=== PATIENT | male | born 1955 | race Caucasian/White ===

== ENCOUNTER 2022-07-08 07:36 | Emergency (ER) | payer MEDICARE, SELFPAY ==
[2022-07-08 07:49] VITALS: BP 171/97; PULSE 72; RESP 20; TEMP 36.5; O2SAT 96; BMI 27.8
--- NOTE | 2022-07-08 07:55 | ED.EAR ---
HPI - Ear Problem General Chief complaint: Ear Stated complaint: Poss ruptured eardrum/leaking spinal fluid-WIC Time Seen by Provider: 07/08/22 07:45 Source: patient Mode of arrival: Ambulatory History of Present Illness HPI Narrative: 67M non smoker without significant medical history presents with his and the chief complaint of left ear problems for the past few months. He states he is had decreased hearing, if not inability to hear as well as drainage of clear fluid from his left ear for approximately 2 months. A few days ago his symptoms greatly worsened with significant pain and he used a Q-tip and got out a relatively large dark clump of wax or other matter. He is had no fever or chills and denies leakage of blood or what appears to be pus. States that he is had a saline like sensation in his nose Related Data Previous Rx's Medication Instructions Recorded ofloxacin 0.3 % ear drops 5 drp EAR-LEFT BID 7 days #5 mL 07/08/22 Allergies Allergy/AdvReac Type Severity Reaction Status Date / Time Sulfa (Sulfonamide Allergy Mild Hives Verified 07/08/22 07:48 Antibiotics) Review of Systems Review of Systems Narrative: GENERAL: Denies chills, fatigue, malaise, fever, sweats. HEENT: See HPI RESPIRATORY: Denies dyspnea, cough, wheezing, hemoptysis, sputum. CARDIOVASCULAR: Denies chest pain, palpitations, orthopnea, edema, GASTROINTESTINAL: Denies nausea, vomiting, abdominal pain, diarrhea, constipation, melena. : Denies dysuria, frequency, incontinence, hematuria, urinary retention. MUSCULOSKELETAL: denies weakness, joint pain, or bony pain SKIN: Denies rash, skin lesions, or other NEUROLOGIC: Denies weakness, headache, numbness, change in speech, confusion, seizures, incoordination. PSYCHIATRIC: No concerning psychosocial issues. 12 point review of systems is negative except for those stated above Patient History Social History Smoking Status: Never smoker Smoking Status: Never smoker Substance Use Type: does not use Exam Narrative Exam Narrative: GEN: AOx3 and in mild distress EYES: Pupils are equal, round, and reactive to light and accommodation. Extraoccular muscles are intact bilaterally. There is no subconjunctival hemorrhage or exudate. ENT: R TM in tact, normal landmarks. L TM difficult to view, some obstruction by cerumen. NO blood, fluid, or debris in EAC CHEST: Lungs are clear to auscultation bilaterally and free of wheezes, rales, or rhonchi. Heart rate is regular rhythm, there are no murmurs, clicks, rubs, or gallops. There is no chest wall tenderness. ABD: Abdomen is soft and nontender. There is no guarding or rebound. Bowel sounds are normal in all 4 quadrants. There is no mass or organomegaly. EXT: Full painless ROM of all extremities with no loss of sensation or strength. SKIN: Warm, pink, and dry. No erythema or rash Initial Vital Signs Initial Vital Signs: Vital Signs Temperature 97.7 F 07/08/22 07:49 Pulse Rate 72 07/08/22 07:49 Respiratory Rate 20 07/08/22 07:49 Blood Pressure 171/97 H 07/08/22 07:49 Pulse Oximetry 96 07/08/22 07:49 Oxygen Delivery Method 07/08/22 07:49 Course Consultations Consultation #1: Discussed case with on-call ENT (rodolfo) who was happy to see patient in the office this morning and request we discharge him and sent him directly over to the [place] office Vital Signs Vital signs: Vital Signs - 8 hr 07/08/22 07:49 Temperature 97.7 F Pulse Rate 72 Respiratory Rate 20 Blood Pressure 171/97 H Pulse Oximetry 96 Oxygen Delivery Method Room Air Discharge Plan Departure Patient Disposition: Home Clinical Impression: Tympanic membrane perforation Instructions: Ruptured Eardrum Activity Restrictions/Additional Instructions: *You have been diagnosed with [left tympanic membrane perforation] *What to do: *Please continue to take your regular medications as directed. [x ] New medication prescriptions sent to your pharmacy: [[facility] ] [ ] New medication written as a paper prescription [ ] No new medications given Please proceed directly to [facility] ([phone]) office in [place]. Directions have been provided. As we discussed, Dr. Silva stated he can squeeze you in this morning Prescriptions: New ofloxacin 0.3 % drops 5 drp EAR-LEFT BID 7 Days Qty: 5 0RF Referrals: Regan Silva MD [Physician] - Visit Report Forms: Patient Portal/API
== END 2022-07-08 08:35 | disposition home or self-care (01) ==
PROVIDERS: Emergency Provider Emergency Medicine
DX: H72.92 Unspecified perforation of tympanic membrane, left ear (principal)
CPT/HCPCS: 99281

== ENCOUNTER → 2022-10-29 08:20 | Outpatient (CLI) | payer OTHER, SELFPAY ==
--- NOTE | 2022-10-29 | DI.MRI.S_ITS ---
PROCEDURE: MR HEAD/BRAIN WO CON INDICATIONS: HEADACHE TECHNIQUE: Non-contrast axial T1 spin echo, axial T2 fast spin echo, sagittal and axial FLAIR, coronal T2 fast spin echo, axial gradient echo, axial diffusion and ADC through the brain. COMPARISON: None. FINDINGS: Image quality: Excellent. CSF spaces: Ventricles appear symmetric in size and shape. Basal cisterns are patent. No extra-axial fluid collections. Brain: No intracranial bleeds or mass effects. There is cerebral volume loss for age. There are periventricular and deep white matter chronic small vessel ischemic changes. Brainstem appears normal. Diffusion-weighted images show no acute ischemic insults. No chronic ischemic insults. Normal intravascular flow voids are present. Skull and face: Calvarial bone marrow is normal in signal. Orbits are normal. Sinuses: Moderate bilateral maxillary sinus mucosal thickening. Left maxillary sinus retention cyst. Air-fluid level within the right maxillary sinus. Mild bilateral frontal and sphenoid sinus mucosal thickening. Mastoids clear. IMPRESSION: 1. Volume loss and small vessel ischemic disease. 2. No acute process. No recent infarct. 3. Sinus disease. Dictated by: Harpreet Grant M.D. on 10/29/2022 at 10:35 Transcribed by: AISHWARYA on 10/29/2022 at 10:36 Approved by: Harpreet Grant M.D. on 10/29/2022 at 13:33
== END ==
PROVIDERS: PCP Internal Medicine; Referring Provider Internal Medicine; Visit Provider Internal Medicine
DX: J32.0 Chronic maxillary sinusitis (principal); J34.1 Cyst and mucocele of nose and nasal sinus; R51.9 Headache, unspecified
CPT/HCPCS: 70551

== ENCOUNTER 2023-10-20 07:16 | Emergency (ER) | payer OTHER, SELFPAY ==
[2023-10-20] VITALS (8 sets, daily range): BP systolic 166–189; BP diastolic 95–109; PULSE 60–75; RESP 14; TEMP 36.4; O2SAT 98–100; BMI 27.8
--- NOTE | 2023-10-20 07:28 | ED.MALEGU ---
HPI - Male Genitourinary General Chief complaint: Abdominal Pain Stated complaint: pain in groin area Time Seen by Provider: 10/20/23 07:25 Source: patient Mode of arrival: Ambulatory Limitations: no limitations History of Present Illness HPI Narrative: 68-year-old male with history of bilateral inguinal hernia repair 11 months ago who presents with complaint of left groin pain. Patient states that it does feel somewhat similar to when he had kidney stones but states it has been constant for the past several months. He states it is worse at nighttime. He notes that he hikes up [place] which is a significant strenuous hike 4 times weekly and it feels better during this activity but at nighttime when he is lying flat it is worse. He states it starts right in the left inguinal area just behind the scrotum but moves up towards the suprapubic bladder area. Sometimes extends over to the right ASIS hip area. Patient states no swelling no redness, no skin changes. He states he takes oral pain medication and ice packs. He states it has been getting worse in the past week and not as tolerable. He denies fevers or chills. No chest pain or shortness of breath, no nausea no vomiting. No diarrhea or constipation and states stooling regularly with no black or bloody stools. He notes he sometimes has urinary frequency or dark colored urine but no discharge. No dysuria. Patient states he sees his primary care he is never had any imaging of the area. He states if it was a kidney stone would be stuck because the pain is persistent. States no daily prescriptions. No reported medical issues. He had bilateral inguinal hernia repair about 11 months ago. Denies tobacco, alcohol or illicit. His primary care is Peg Markham. Related Data Allergies Allergy/AdvReac Type Severity Reaction Status Date / Time Sulfa (Sulfonamide Allergy Mild Hives Verified 10/20/23 07:28 Antibiotics) Review of Systems Review of Systems ROS Unobtainable: All systems reviewed & are unremarkable except as noted in HPI and below Patient History Social History Smoking Status: Never smoker Smoking Status: Never smoker alcohol intake frequency: other Substance Use Type: does not use Exam Narrative Exam Narrative: GENERAL: Alert and oriented x three, well-appearing male in mild distress. HEENT: Head normocephalic, atraumatic, EOMI, pupils reactive, face symmetric, moist mucous membranes NECK: Supple, full range of motion CARDIOVASCULAR: Regular rate and rhythm without murmurs, rubs or gallops. RESPIRATORY: Breath sounds equal bilaterally, no wheezes rales or rhonchi. ABDOMEN: Soft, nontender. Non-distended. Normoactive bowel sounds all 4 quadrants. No guarding or rebound, rigidity, no mass : No CVA tenderness. Male: normal external examination, no penile discharge or lesions, testicles non-tender, cremasteric reflex intact, no inguinal hernias noted with palpation or on exam. No rash, no erythema or skin changes. EXTREMITIES: Normal range of motion, no clubbing or edema. Neurovascularly intact NEUROLOGICAL: Cranial nerves II through XII grossly intact. Moving all extremities SKIN: Warm, dry, no petechiae, no rashes or lesions. Initial Vital Signs Initial Vital Signs: Vital Signs Temperature 97.6 F 10/20/23 07:20 Pulse Rate 69 10/20/23 07:20 Respiratory Rate 14 10/20/23 07:20 Blood Pressure 189/95 H 10/20/23 07:20 Pulse Oximetry 99 10/20/23 07:20 Oxygen Delivery Method Room Air 10/20/23 07:20 Course Orders Ordered: ED Orders 10/20/23 07:41 CT abdomen pelvis w con Stat 10/20/23 07:45 UA dip and micro [Urinalysis and Microscopic] Stat 10/20/23 08:00 Complete Blood Count AUTO DIFF Stat Comprehensive Metabolic Panel Stat Lipase Stat 10/20/23 08:37 US scrotum Stat Vital Signs Vital signs: Vital Signs - 8 hr 10/20/23 07:20 10/20/23 07:23 10/20/23 07:25 Temperature 97.6 F Pulse Rate 69 75 68 Respiratory Rate 14 Blood Pressure 189/95 H Pulse Oximetry 99 98 99 Oxygen Delivery Method Room Air 10/20/23 07:25 10/20/23 07:30 10/20/23 08:09 Temperature Pulse Rate 69 60 Respiratory Rate Blood Pressure 189/95 H Pulse Oximetry 100 100 Oxygen Delivery Method Room Air 10/20/23 08:30 10/20/23 09:00 10/20/23 09:18 Temperature Pulse Rate 63 74 Respiratory Rate Blood Pressure 166/109 H Pulse Oximetry 99 99 Oxygen Delivery Method [facility] - Male Genitourinary Lab Data 10/20/23 08:00 10/20/23 08:00 Labs: Lab Results 10/20/23 10/20/23 Range/Units 07:45 08:00 WBC 7.4 (4.5-11.0) X10^3/uL RBC 5.15 (4.5-5.9) X10^6/uL Hgb 14.8 (13.5-17.5) g/dL Hct 43.5 (41-53) % MCV 84.6 (80-100) fL MCH 28.8 (26-34) PG MCHC 34.1 (30-36) % RDW 13.4 (11.6-14.8) % Plt Count 248 (150-400) X10^3/uL Neut % (Auto) 54.5 (50-75) % Lymph % (Auto) 29.9 (25-40) % [place] % (Auto) 8.9 (3-14) % Eos % (Auto) 5.8 H (2-4) % Baso % (Auto) 0.9 (0-2) % Neut # (Auto) 4000 (4978-5394) /uL Lymph # (Auto) 2200 (7044-4070) /uL [place] # (Auto) 700 (0-900) /uL Eos # (Auto) 400 (0-450) /uL Baso # (Auto) 100 (0-100) /uL Sodium 136 L (137-145) mmol/L Potassium 3.8 (3.4-5.1) mmol/L Chloride 101 (98-107) mmol/L Carbon Dioxide 26 (22-32) mmol/L BUN 20 (9-20) mg/dL Creatinine 0.95 (0.66-1.25) mg/dL Estimated GFR > 60 (>60) mL/min BUN/Creatinine Ratio 21.1 (6-22) Glucose 110 (80-110) mg/dL Calcium 9.4 (8.4-10.2) mg/dL Total Bilirubin 0.5 (0.2-1.3) mg/dL AST 31 (17-59) IU/L ALT 35 (<50) IU/L Alkaline Phosphatase 108 (38-126) U/L Total Protein 8.0 (6.3-8.2) g/dL Albumin 4.5 (3.5-5.0) g/dL Globulin 3.5 (1.7-4.1) g/dL Albumin/Globulin Ratio 1.3 (1.0-2.8) Lipase 211 (23-300) U/L Urine Color Yellow Urine Appearance Clear Urine pH 6.0 (4.5-8.0) Ur Specific Roberts 1.015 (1.000-1.035) Urine Protein Negative (Negative) Urine Glucose (UA) Negative (Negative) g/dL Urine Ketones Negative (NEGATIVE) Urine Occult Blood Trace-intact (Negative) Urine Nitrate Negative (Negative) Urine Bilirubin Negative (NEGATIVE) Urine Urobilinogen 0.2 (0.2) E.U./dL Ur Leukocyte Esterase Negative (NEGATIVE) Urine RBC 1-5/hpf (0-5/HPF) Urine WBC None seen (0-5/HPF) Ur Squamous Epith Cells 0-1 /hpf (0-5/HPF) Urine Bacteria None seen (None) Ur Culture Indicated? Cult not indicated Imaging Data CT scan - abdomen/pelvis: Radiologist's Impression: Flako Garcia??68??M??1955 ? Allergy/Adv: Sulfa (Sulfonamide Antibiotics) (More??) Close Abdomen/Pelvis CT (Signed) [facility] - 10/20/23 Brain MRI (Signed) Harpreet Grant - 10/29/22 [address]?[place] [address] CT Scan Report Signed Patient: Flako Garcia MR#: [id number] : 1955 Acct:[id number] Age/Sex: 68 / M Date of Service: 10/20/23 Loc: ED Accession Number: [id number] Procedure: CT abdomen pelvis w con Ordering Provider: Karuna Garcia D.O. PROCEDURE: CT ABDOMEN PELVIS W CON INDICATIONS: L inguinal pain, better w/ activity, worse at night TECHNIQUE: After the administration of intravenous contrast, axial sections acquired from the lung bases to the pubic symphysis. Coronal and sagittal reformats were performed. For radiation dose reduction, the following was used: automated exposure control, adjustment of mA and/or kV according to patient size. COMPARISON: None. FINDINGS: Image quality: Excellent. Lung bases: Unremarkable. Heart: No significant findings. ABDOMEN: Liver: Unremarkable. Gallbladder: Unremarkable. Biliary ducts: Unremarkable. Pancreas: Unremarkable. Spleen: Unremarkable. Adrenal Glands: Unremarkable. Kidneys and Ureters: Right exophytic simple cyst measuring 3.7 centimeters in the interpolar region and left inferior pole simple cyst measuring 2.0 centimeters. Additional bilateral subcentimeter cortical hypodensities are too small to characterize, probable cysts. Nonobstructing left inferior pole calculi with the largest measuring 0.9 centimeters (HU 800). No hydroureteronephrosis bilaterally. Stomach and Bowel: Stomach, small bowel loops, and colon are unremarkable. Peritoneum: No abnormal intraperitoneal fluid. No free air. Ventral Wall: No hernias. Abdominal Nodes: No retroperitoneal or mesenteric adenopathy by size criteria. Vessels: Aorta and inferior vena cava are normal in size. PELVIS: Pelvic Organs: Fluid in the left scrotum. Bladder: Unremarkable. Pelvic Nodes: No enlarged lymph nodes. Miscellaneous: Small fat containing right inguinal hernia.. Bones: No acute or suspicious osseous abnormality. Mild degenerative changes of the visualized spine, worse at L4-L5. IMPRESSION: 1. Fluid in the left scrotum may represent a hydrocele. Consider further evaluation with testicular ultrasound if clinically appropriate. 2. Nonobstructing left inferior pole calculi of the largest measuring up to 9 mm. No hydroureteronephrosis. Dictated by: Unique Hayes M.D. on 10/20/2023 at 8:18 Approved by: Unique Hayes M.D. on 10/20/2023 at 8:29 US scrotum: Radiologist's Impression: [place] [address] Ultrasound Report Signed Patient: Flako Garcia MR#: [id number] : 1955 Acct:[id number] Age/Sex: 68 / M Date of Service: 10/20/23 Loc: ED Accession Number: [id number] Procedure: US scrotum Ordering Provider: Karuna Garcia D.O. PROCEDURE: US SCROTUM INDICATIONS: LEFT TESTICULAR PAIN TECHNIQUE: Real-time scanning was performed of the scrotum and testicles, with image documentation. Color and pulse Doppler interrogation was performed of both testicles. COMPARISON: [facility], CT, CT ABDOMEN PELVIS W CON, 10/20/2023, 7:47. FINDINGS: Right: Testicle is normal in size at 4.7 x 2.9 x 2.6 cm, and homogenous in echotexture. Epididymis is normal in overall size and morphology. Right epididymal head anechoic cyst measuring at 0.7 cm. No hydrocele or varicoceles. Overlying scrotal skin is normal in thickness. Left: Testicle is normal in size at 4.6 x 2.9 x 2.1 cm, and homogeneous in echotexture. Epididymis is normal in overall size and morphology. Left epididymal head anechoic cyst measuring 2.8 x 2.6 x 2 cm. No hydrocele or varicoceles. Overlying scrotal skin is normal in thickness. Doppler: Color and pulse Doppler demonstrate normal and symmetric arterial flow in both testicles. IMPRESSION: 1. Left epididymal head cyst measuring 2.8 cm in the region of pain. 2. No testicular mass. 3. No hydrocele. No varicocele. Dictated by: Vivek Fragoso M.D. on 10/20/2023 at 9:15 Approved by: Vivek Fragoso M.D. on 10/20/2023 at 9:17 MDM Narrative Medical decision making narrative: Well-appearing 68-year-old male with history of bilateral inguinal hernia repair kidney stones who presents with complaint of left inguinal pain that radiates towards the suprapubic area and left hip bone. Patient states has been persistent for several months did have hernia repair 11 months ago. He states it feels somewhat similar to when he had kidney stones but never resolves. It is better with activity and worse when lying flat if he evenings. Patient states no skin changes, patient's exam is overall normal no easily palpable hernia. Discussed with patient plan for labs, urine and CT abdomen pelvis to evaluate for hernia, stone, mass or lymphadenopathy or other changes. Labs overall are unremarkable, urine showed small amount of hematuria patient has 1-5 RBCs no white cells 0-[address] abdomen pelvis shows fluid in the left scrotum, small fat containing right inguinal hernia and a right exophytic cysts and a left inferior pole cyst with probable cysts bilaterally and a left inferior pole calculi. No hydroureteronephrosis. Because of patient's persistent pain ultrasound of the testicle was ordered but likely sources hydrocele. Patient had ultrasound performed but wished to leave before results were available. Discussed with patient suspect hydrocele but do not know for sure until testicular ultrasound has resulted. 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 He states he will call back for the results. We did review his labs, CT imaging and urinalysis. Referral was given and patient was asked to return or call back for his results. Scrotal ultrasound shows left epididymal head cyst measuring 2.8 cm in region of pain no other testicular mass no hydrocele. Patient has been encouraged to follow up with Urology. Patient called and updated on on findings need for follow up with Urology expresses understanding. Patient and I had reviewed return precautions. Discharge Plan Departure Patient Disposition: Home Clinical Impression: Left testicular pain, Cyst of epididymis Instructions: DI for Hydrocele-Adult Activity Restrictions/Additional Instructions: Your ultrasound has been performed but has not been read by the radiologist. I do not have a final formal diagnosis for you yet. You can call to follow-up your ultrasound report at [phone] or use the patient portal. I would recommend following up with Urology if you are having persistent pain in his area. Contact is included below. Please call to set up an appointment. You may continue using ice packs and your home medications for pain management. Please return for rapidly worsening symptoms, new redness, swelling or increasing pain, fevers, nausea or vomiting no abdominal back or flank pain or other new or concerning changes. Referrals: Tyree Funk MD [Primary Care Provider] - Logan Bradford MD [Physician] - Stand Alone Forms: Patient Portal/API
--- NOTE | 2023-10-20 07:39 | PC.NURSE ---
Pt has consulted his doctor who states he should be evaluated for a urine sample and possibly CT due to his history of inguinal hernias and kidney stones.
--- NOTE | 2023-10-20 07:41 | DI.CT.S_ITS ---
PROCEDURE: CT ABDOMEN PELVIS W CON INDICATIONS: L inguinal pain, better w/ activity, worse at night TECHNIQUE: After the administration of intravenous contrast, axial sections acquired from the lung bases to the pubic symphysis. Coronal and sagittal reformats were performed. For radiation dose reduction, the following was used: automated exposure control, adjustment of mA and/or kV according to patient size. COMPARISON: None. FINDINGS: Image quality: Excellent. Lung bases: Unremarkable. Heart: No significant findings. ABDOMEN: Liver: Unremarkable. Gallbladder: Unremarkable. Biliary ducts: Unremarkable. Pancreas: Unremarkable. Spleen: Unremarkable. Adrenal Glands: Unremarkable. Kidneys and Ureters: Right exophytic simple cyst measuring 3.7 centimeters in the interpolar region and left inferior pole simple cyst measuring 2.0 centimeters. Additional bilateral subcentimeter cortical hypodensities are too small to characterize, probable cysts. Nonobstructing left inferior pole calculi with the largest measuring 0.9 centimeters (HU 800). No hydroureteronephrosis bilaterally. Stomach and Bowel: Stomach, small bowel loops, and colon are unremarkable. Peritoneum: No abnormal intraperitoneal fluid. No free air. Ventral Wall: No hernias. Abdominal Nodes: No retroperitoneal or mesenteric adenopathy by size criteria. Vessels: Aorta and inferior vena cava are normal in size. PELVIS: Pelvic Organs: Fluid in the left scrotum. Bladder: Unremarkable. Pelvic Nodes: No enlarged lymph nodes. Miscellaneous: Small fat containing right inguinal hernia.. Bones: No acute or suspicious osseous abnormality. Mild degenerative changes of the visualized spine, worse at L4-L5. IMPRESSION: 1. Fluid in the left scrotum may represent a hydrocele. Consider further evaluation with testicular ultrasound if clinically appropriate. 2. Nonobstructing left inferior pole calculi of the largest measuring up to 9 mm. No hydroureteronephrosis. Dictated by: Unique Hayes M.D. on 10/20/2023 at 8:18 Approved by: Unique Hayes M.D. on 10/20/2023 at 8:29
[2023-10-20 08:15] LABS: Appearance Urine UA CLEAR; Bilirubin Urine UA NEGATIVE (NEGATIVE); Color Urine UA YELLOW; Glucose Urine UA NEGATIVE (Negative); Ketones Urine UA NEGATIVE (NEGATIVE); Leukocyte Esterase Urine UA NEGATIVE (NEGATIVE); Nitrite Urine UA NEGATIVE (Negative); Occult Blood Urine UA TRACE-INTACT (Negative); Protein Urine UA NEGATIVE (Negative); Specific Gravity Urine UA 1.015 (1.000-1.035); Urobilinogen Urine UA 0.2 E.U./dL (0.2)
[2023-10-20 08:17] LABS: Add Manual Diff / Slide Review NO; Basophils Absolute Auto 100 /uL (0-100); Basophils Percent Auto 0.9 % (0-2); Eosinophils Absolute Auto 400 /uL (0-450); Eosinophils Percent Auto 5.8 % (2-4); Hematocrit 43.5 % (41-53); Hemoglobin 14.8 g/dL (13.5-17.5); Lymphocytes Absolute Auto 2200 /uL (1100-4500); Lymphocytes Percent Auto 29.9 % (25-40); Mean Corpuscular HGB Conc 34.1 % (30-36); Mean Corpuscular Hemoglobin 28.8 PG (26-34); Mean Corpuscular Volume 84.6 fL (80-100); Monocytes Absolute Auto 700 /uL (0-900); Monocytes Percent Auto 8.9 % (3-14); Neutrophils Absolute Auto 4000 /uL (1500-7000); Neutrophils Percent Auto 54.5 % (50-75); Platelet Count 248 X10^3/uL (150-400); Red Blood Cell Count 5.15 X10^6/uL (4.5-5.9); Red Cell Distribution Width 13.4 % (11.6-14.8); White Blood Cell Count 7.4 X10^3/uL (4.5-11.0)
[2023-10-20 08:17] LABS: Bacteria Urine None Seen; Culture Indicated Urine Cult Not Indicated; RBC Urine 1-5/HPF (0-5/HPF); Squamous Epithelial Cell Urine 0-1 /HPF (0-5/HPF); WBC Urine None Seen (0-5/HPF)
[2023-10-20 08:30] LABS: Alanine Aminotransferase 35 IU/L (<50); Albumin 4.5 g/dL (3.5-5.0); Albumin Globulin Ratio 1.3 (1.0-2.8); Alkaline Phosphatase 108 U/L (38-126); Aspartate Aminotransferase 31 IU/L (17-59); BUN Creatinine Ratio 21.1 (6-22); Bilirubin Total 0.5 mg/dL (0.2-1.3); Blood Urea Nitrogen 20 mg/dL (9-20); Calcium 9.4 mg/dL (8.4-10.2); Carbon Dioxide 26 mmol/L (22-32); Chloride 101 mmol/L (98-107); Estimated Glomerular Filt Rate > 60 mL/min (>60); Globulin 3.5 g/dL (1.7-4.1); Glucose 110 mg/dL (80-110); HEMOLYSIS < 15 (0-50); Lipase 211 U/L (23-300); Potassium 3.8 mmol/L (3.4-5.1); Sodium 136 mmol/L (137-145)
--- NOTE | 2023-10-20 08:37 | DI.US.S_ITS ---
PROCEDURE: US SCROTUM INDICATIONS: LEFT TESTICULAR PAIN TECHNIQUE: Real-time scanning was performed of the scrotum and testicles, with image documentation. Color and pulse Doppler interrogation was performed of both testicles. COMPARISON: [facility], CT, CT ABDOMEN PELVIS W CON, 10/20/2023, 7:47. FINDINGS: Right: Testicle is normal in size at 4.7 x 2.9 x 2.6 cm, and homogenous in echotexture. Epididymis is normal in overall size and morphology. Right epididymal head anechoic cyst measuring at 0.7 cm. No hydrocele or varicoceles. Overlying scrotal skin is normal in thickness. Left: Testicle is normal in size at 4.6 x 2.9 x 2.1 cm, and homogeneous in echotexture. Epididymis is normal in overall size and morphology. Left epididymal head anechoic cyst measuring 2.8 x 2.6 x 2 cm. No hydrocele or varicoceles. Overlying scrotal skin is normal in thickness. Doppler: Color and pulse Doppler demonstrate normal and symmetric arterial flow in both testicles. IMPRESSION: 1. Left epididymal head cyst measuring 2.8 cm in the region of pain. 2. No testicular mass. 3. No hydrocele. No varicocele. Dictated by: Vivek Fragoso M.D. on 10/20/2023 at 9:15 Approved by: Vivek Fragoso M.D. on 10/20/2023 at 9:17
== END 2023-10-20 09:18 | disposition home or self-care (01) ==
PROVIDERS: Emergency Provider Emergency Medicine; PCP Internal Medicine
DX: N50.812 Left testicular pain (principal); N50.3 Cyst of epididymis
CPT/HCPCS: 36415; 74177; 76870; 80053; 81001; 83690; 85025; 93975; 99283; 99284; Q9967

== ENCOUNTER → 2023-11-27 09:44 | Outpatient (CLI) | payer MEDICARE, SELFPAY ==
--- NOTE | 2023-11-27 09:45 | DI.RAD.S_ITS ---
PROCEDURE: XR KUB INDICATIONS: Kidney stone TECHNIQUE: One view of the abdomen acquired. COMPARISON: [facility], CT, CT ABDOMEN PELVIS W CON, 10/20/2023, 7:47. FINDINGS: Surgical changes and devices: None. Bowel: Bowel gas pattern is normal. Soft tissues: No suspicious abdominal calcifications. Calcifications are present overlying the left renal shadow, appearing unchanged from prior CT. Visualized solid organ contours appear normal in size. Bones: No suspicious bony lesions. IMPRESSION: Stable appearance of calcifications overlying the left renal shadow. Dictated by: Sandra Jarvis M.D. on 11/27/2023 at 15:13 Approved by: Sandra Jarvis M.D. on 11/27/2023 at 15:26
== END ==
PROVIDERS: PCP Student in an Organized Health Care Education/Training Program; Referring Provider Urology; Visit Provider Urology
DX: N20.0 Calculus of kidney (principal); N50.3 Cyst of epididymis; N50.812 Left testicular pain; R39.9 Unspecified symptoms and signs involving the genitourinary system; Z87.442 Personal history of urinary calculi; Z77.22 Contact with and (suspected) exposure to environmental tobacco smoke (acute) (chronic)
CPT/HCPCS: 74018; 81002; 99214

== ENCOUNTER 2024-01-06 07:28 | Day surgery (SDC) | payer OTHER, SELFPAY ==
[2023-12-31 14:52] VITALS: BMI 29.1
--- NOTE | 2024-01-06 | PATH_ITS ---
[facility] Accession Number: [id number] No. of containers..01 Tissue . 01 Material submitted: . SPERMATOCELE - SPERMATOCELE SAC . 01 Diagnosis: SPERMATOCELE, EXCISION: Epithelial lined fibrous tissue consistent with spermatocele sac. Negative for neoplasia. [facility] 01/08/2024 1201 Local . 01 Electronically signed: . Toyin Hickman MD, Pathologist NPI- [id number] . 01 Gross description: . The specimen is received in formalin labeled with the patient's name, , and spermatocele sac, consists of a single fragment of pink-de la o, previously disrupted sac-like soft tissue measuring 2.0 x 0.7 x 0.2 cm. One aspect is inked blue. The tissue is sectioned into three slices and entirely submitted in cassette A1. ([id number]) /MRV 01/07/2024 1241 Local . 01 Pathologist provided ICD-10: N50.3 . 01 CPT . 143837 Specimen Comment: A courtesy copy of this report has been sent to [phone] Performed at: 01 [facility] [address] [place] [address] [id number] MD Naif Patrick MD Phone: [phone]
[2024-01-06 07:53] VITALS: BMI 28.7
[2024-01-06 07:59] VITALS: BP 168/98; PULSE 82; RESP 16; TEMP 36.2; O2SAT 98
[2024-01-06] MEDS: LACTATED RINGERS 1,000 ML 42 ML IV (08:08)
[2024-01-06] MEDS: ACETAMINOPHEN 325 MG TABLET 975 MG PO (08:10)
--- NOTE | 2024-01-06 08:26 | PM.PREOP ---
Pre-operative Note COVID-19 COVID-19 status: Not tested Interval Note History & Physical reviewed/Exam performed by Physician: Yes Changes to H&P: No
[2024-01-06] MEDS: CEFAZOLIN 2 GM/100 ML PREMIX 100 ML IV (09:02)
--- NOTE | 2024-01-06 09:15 | SUR.OPER ---
Supine on padded OR bed, head on pillow, arms secured on padded arm boards at <90 degrees abduction, legs uncrossed, safety belt at thigh, tape over blanket over lower legs.
[2024-01-06] MEDS: BUPIVACAINE 0.25% (PF) VIAL 30 ML INJ (09:23)
[2024-01-06 10:15] VITALS: BP 141/91; PULSE 97; RESP 12; TEMP 36.4; O2SAT 98
--- NOTE | 2024-01-06 10:16 | P.OP_ITS ---
Procedure & Clinicians Procedure: Left spermatocelectomy Same procedure as scheduled: Yes Indications: This 68-year-old male presented with complaints of left hemiscrotal enlargement and discomfort. Ultrasound was performed which revealed this discomfort in the area of concern to be a spermatocele. He presents this time for removal. Surgeon: Logan Bradford Click Yes if Unassisted: Yes Anesthesia Type: General Operative Notes Findings: Findings: Uncircumcised male spermatocele superior to the left testicle right h emiscrotum testes and cord structures are normal. The spermatocele contain the expected milky colored fluid. And there were no other abnormalities. The epididymis did have to be dissected off of the spermatocele anteriorly. Otherwise normal anatomy was observed. Closure Type: primary Specimen(s): other (Spermatocele sac left side) Prosthetic devices, grafts, tissues, transplants, or devices: None Estimated Blood Loss (mL): 5 Procedure in detail: Procedure in detail: After informed consent was obtained, the patient was identified brought to the operating room where he is placed in supine position on the table. Once their anesthesia was induced and maintained. With this accomplished the patient was prepped, draped, prepared for left hemiscrotal surgery. After prepping, draping, ensuring an adequate level of anesthesia and time-out with administration of antibiotics a transverse incision was made in the left hemiscrotum and carried down through the layers of the dartos. The testes and spermatocele were then delivered. The investing layers were dissected off of the spermatocele which also involved for a short-segment the epididymis. This was dissected down to the neck of the spermatocele which was ligated with a 2-0 Vicryl. The sac was then excised. The epididymis was then reattached to the tunica albuginea with interrupted 3-0 chromic gut suture. This was done in a fashion to ensure that there was no torsion of the epididymis. Cord block was then performed with 0.25% Marcaine. The tunica vaginalis was then reapproximated with a running 3-0 chromic gut suture. The testes was then returned to the scrotum the dartos was reapproximated with a running 2-0 Vicryl and the skin edges with interrupted vertical mattress of 2-0 chromic. The skin scrotum were then infiltrated with 0.25% plain Marcaine. Bacitracin Telfa fluffs and scrotal support were then applied the patient was awakened having tolerated procedure well and transferred to the postanesthesia care unit for recovery. There were no complications the patient will follow up my office in approximately 10-14 days. The spermatocele sac was forwarded to pathology for pathologic examination. Complications: none Post-operative Condition: stable Disposition: PACU Plan for aftercare: Patient to be discharged to home and follow up my office in 10-14 days.
[2024-01-06 10:20] VITALS: BP 143/94; PULSE 94; RESP 16; O2SAT 97
[2024-01-06 10:25] VITALS: BP 154/98; PULSE 93; RESP 14; O2SAT 97
[2024-01-06 10:35] VITALS: BP 145/92; PULSE 91; RESP 12; O2SAT 97
== END 2024-01-06 10:47 | disposition home or self-care (01) ==
PROVIDERS: PCP Student in an Organized Health Care Education/Training Program; Referring Provider Urology; Visit Provider Urology
PROC: (CPT 54840; principal; 2024-01-06 09:00)
DX: N50.3 Cyst of epididymis (principal)
CPT/HCPCS: 54840; J0690; J1100; J2405; J2704; J3010